=== PATIENT | female | born 1985 | race Caucasian/White ===

== ENCOUNTER 2018-09-27 00:31 | Emergency (ER) | payer OTHER ==
[~2018-09-27] VITALS: Ht 162.6 cm; Wt 49.9 kg
[2018-09-27 00:38] VITALS: BP 125/80
[2018-09-27] MEDS ORDERED: DOXYCYCLINE 10100 MG PO (00:43)
[2018-09-27] MEDS ORDERED: NAPROSYN500 MG PO (00:44)
[2018-09-27] MEDS ORDERED: NORCO 5-325 TA1 EAC1 PO (00:56)
== END 2018-09-27 01:08 | disposition home or self-care (01) ==
LOC: M.ERS 00:31
DX: T63.331A Toxic effect of venom of brown recluse spider, accidental (unintentional), initial encounter (principal); Y92.89 Other specified places as the place of occurrence of the external cause